=== PATIENT | male | born 1980 | race Caucasian/White ===

== ENCOUNTER 2018-03-06 12:09 | Emergency (ER) | payer BC ==
[~2018-03-06] VITALS: Ht 170.2 cm; Wt 75.0 kg
[2018-03-06 12:26] VITALS: Ht 170.2 cm; Wt 75.0 kg
[2018-03-06] MEDS ORDERED: IBUPROFEN800 MG PO (12:29)
[2018-03-06] MEDS ORDERED: TORADOL10 MG PO (14:27)
[2018-03-06 15:14] VITALS: BP 128/66
== END 2018-03-06 15:16 | disposition home or self-care (01) ==
LOC: D.ER 12:09
DX: M54.6 Pain in thoracic spine (principal); F17.200 Nicotine dependence, unspecified, uncomplicated